=== PATIENT | female | born 1965 | race Caucasian/White ===

== ENCOUNTER 2018-09-27 09:38 | Outpatient (CLI) | payer MEDICAID | END 2018-09-27 09:39 | disposition critical access hospital (66) | LOC: EMS 09:38 | PROVIDERS: ATTEND Surgery | DX: R55 Syncope and collapse (principal) | CPT/HCPCS: A0425; A0427; A0999 ==

== ENCOUNTER 2018-09-27 09:58 | Emergency (ER) | payer MEDICAID ==
--- NOTE | 2018-09-27 12:01 | ED Physician Documentation ---
PD HPI NVD - Stated complaint Stated Complaint: DIZZY/SYNCOPAL - Chief complaint Chief Complaint: General - History obtained from History obtained from: Patient - History of Present Illness Timing - onset: Last night (She had an onset of diarrhea with 2 episodes of watery bowel movements during the night. She is feeling generally weak and lightheaded. Getting up from the toilet she did faint in the bathroom. She is feeling a bit better lying there and she is tried standing up again and shortly later almost fainted again. She has been having nausea with decreased intake over the last several days. She had received chemotherapy last Tuesday. She had been doing okay initially over the weekend and then develops more nausea less appetite and now the diarrhea. She did not notice any blood or melena in her stool.) Timing - duration: Hours Timing - details: Gradual onset, Still present Associated symptoms: Near syncope / syncope, Loss of appetite (for few days). No: Fever, Abdominal pain, Chest pain, Hematochezia Improved by: No: Eating Worsened by: Eating (the nauseea is worse) Recently seen: Clinic (had chemo recently.) Review of Systems Constitutional: denies: Fever, Chills Nose: denies: Rhinorrhea / runny nose, Congestion Throat: denies: Sore throat Respiratory: denies: Cough GI: reports: Nausea, Diarrhea. 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: Breast cancer - Present Medications Home Medications: Ambulatory Orders Medication Instructions Recorded Confirmed Diphenoxylate/Atropine [Lomotil] 1 each PO QID PRN #15 tablet 09/27/18 - Allergies Allergies/Adverse Reactions: Allergies Allergy/AdvReac Type Severity Reaction Status Date / Time latex Allergy Edema Verified 09/27/18 12:33 - Social History Does the pt smoke?: No Smoking Status: Former smoker Does the pt drink ETOH?: Yes ETOH Use: Wine Does the pt have substance abuse?: No - Immunizations Immunizations are current?: Yes - POLST Patient has POLST: No PD ED PE NORMAL - Vitals Vital signs reviewed: Yes - General General: Alert and oriented X 3, No acute distress, Well developed/nourished - HEENT HEENT: Atraumatic, Pharynx benign. No: Moist mucous membranes - Neck Neck: Supple, no meningeal sign, No adenopathy - Cardiac Cardiac: RRR, No murmur - Respiratory Respiratory: Clear bilaterally - Abdomen Abdomen: Normal bowel sounds, Soft, Non tender, Non distended - Derm Derm: Normal color, Warm and dry - Extremities Extremities: No deformity, No tenderness to palpate, Normal ROM s pain - Neuro Neuro: Alert and oriented X 3, No motor deficit, Normal speech Results - Vitals Vitals: Vital Signs - 24 hr 09/27/18 09/27/18 09/27/18 12:43 14:25 15:37 Heart Rate 65 70 69 Respiratory 16 14 18 Rate Blood Pressure 106/48 L 115/63 114/56 L O2 Saturation 96 96 97 Oxygen O2 Source Room air - Labs Labs: Laboratory Tests 09/27/18 09/27/18 09/27/18 12:39 12:39 14:10 WBC 6.1 RBC 3.19 L Hgb 11.0 L Hct 31.0 L MCV 97.0 MCH 34.5 H MCHC 35.5 RDW 12.7 Plt Count 202 MPV 8.1 Neut # (Auto) 5.8 Lymph # (Auto) 0.2 L [place] # (Auto) 0.0 Eos # (Auto) 0.0 Baso # (Auto) 0.0 Absolute Nucleated RBC 0.00 Nucleated RBC % 0.0 Manual Slide Review Indicated WBC Morphology 1+ DOHLE BODIES Platelet Estimate NORMAL (130-450,000) Platelet Morphology NORMAL APPEARANCE RBC Morph Micro Appear NORMAL APPEARANCE Sodium 133 L Potassium 4.1 Chloride 99 L Carbon Dioxide 25 Anion Gap 9.0 BUN 13 Creatinine 0.6 Estimated GFR (MDRD) 105 Glucose 106 H Calcium 7.7 L Magnesium 1.8 Total Bilirubin 0.8 AST 19 ALT 20 Alkaline Phosphatase 37 L Total Protein 5.8 L Albumin 3.2 Globulin 2.6 Albumin/Globulin Ratio 1.2 Lipase 20 L Urine Color YELLOW Urine Clarity CLEAR Urine pH 7.0 Ur Specific [place] 1.010 Urine Protein NEGATIVE Urine Glucose (UA) NEGATIVE Urine Ketones NEGATIVE Urine Occult Blood NEGATIVE Urine Nitrite NEGATIVE Urine Bilirubin NEGATIVE Urine Urobilinogen 0.2 (NORMAL) Ur Leukocyte Esterase NEGATIVE Ur Microscopic Review NOT INDICATED Urine Culture Comments NOT INDICATED PD MEDICAL DECISION MAKING - ED course Complexity details: reviewed results, re-evaluated patient (feeling better with fluids and meds) Departure - Departure Disposition: 01 Home, Self Care Clinical Impression: Postural syncope, Dehydration, Nausea vomiting and diarrhea, Hypocalcemia Condition: Stable Record reviewed to determine appropriate education?: Yes Instructions: ED Dehydration, ED Syncope Vasovagal Prescriptions: Diphenoxylate/Atropine [Lomotil] 1 each PO QID PRN #15 tablet PRN Reason: Diarrhea Comments: I think your fainting was from low blood pressure subsequent to dehydration and the diarrhea. No doubt there is the effect of the chemotherapy as well. The diarrhea may be an intestinal acute infection or could be irritation from the chemo. See if this improves in the next day or 2. Use Lomotil if needed for diarrhea. Use your nausea medicine at home as needed for nausea. Frequent fluids. Your calcium level was a little bit low here and so you are given a supplement IV. I do not think you necessarily need an ongoing supplement. F ollow-up with your primary care and oncology in the next couple of days. Discharge Date/Time: 09/27/18 16:05
[2018-09-27] MEDS ORDERED: ONDANSETRON 4 MG/2 ML VIAL IVP STA (12:25)
[2018-09-27] MEDS ORDERED: SODIUM CHLORIDE 0.9% 1,000 ML IV ONE ×3 (12:25→13:55)
[2018-09-27 12:57] LABS: ALBUMIN 3.2 g/dL (3.2-5.5); ALBUMIN/GLOBULIN RATIO 1.2 (1.0-2.2); BASOPHILS % (AUTO) 0.3 %; BILIRUBIN,TOTAL 0.8 mg/dL (0.2-1.0); CALCIUM 7.7 mg/dL (8.5-10.3); CREATININE 0.6 mg/dL (0.4-1.0); EOSINOPHILS % (AUTO) 0.1 %; LYMPHOCYTES # (AUTO) 0.2 10^3/uL (1.5-3.5); LYMPHOCYTES % (AUTO) 3.2 %; MAGNESIUM 1.8 mg/dL (1.7-2.8); MEAN CORPUSCULAR HEMOGLOBIN 34.5 pg (27.0-31.0); MEAN CORPUSCULAR HGB CONC 35.5 g/dL (32.0-36.0); MEAN PLATELET VOLUME 8.1 fL (7.9-10.8); MONOCYTES % (AUTO) 0.8 %; NEUTROPHILS # (AUTO) 5.8 10^3/uL (1.5-6.6); NEUTROPHILS % (AUTO) 95.6 %; PLT - PLATELET COUNT 202 10^3/uL (130-450); RED BLOOD COUNT 3.19 10^6/uL (4.20-5.40); RED CELL DISTRIBUTION WIDTH 12.7 % (12.0-15.0); TOTAL PROTEIN 5.8 g/dL (6.7-8.2); WHITE BLOOD COUNT 6.1 x10^3/uL (4.8-10.8)
[2018-09-27 13:23] LABS: PLATELET ESTIMATE, MANUAL NORMAL (130-450,000) (NORMAL); PLATELET MORPHOLOGY NORMAL APPEARANCE (NORMAL); RBC MORPHOLOGY (MULTIPLE) NORMAL APPEARANCE (NORMAL)
[2018-09-27] MEDS ORDERED: CALCIUM GLUCONATE 1,000 MG in SODIUM CHLORIDE 0.9% 50 ML IV STA (13:39)
[2018-09-27 15:02] LABS: BILIRUBIN,URINE NEGATIVE (NEGATIVE); GLUCOSE, URINE (UA) NEGATIVE (NEGATIVE); KETONES,URINE (UA) NEGATIVE (NEGATIVE); LEUKOCYTE ESTERASE, URINE NEGATIVE (NEGATIVE); NITRITE,URINE NEGATIVE (NEGATIVE); OCCULT BLOOD,URINE NEGATIVE (NEGATIVE); PROTEIN,URINE NEGATIVE (NEGATIVE); UROBILINOGEN,URINE 0.2 (NORMAL) E.U./dL (NORMAL)
[2018-09-27 15:03] LABS: CLARITY,URINE CLEAR (CLEAR)
[2018-09-27] MEDS ORDERED: ACETAMINOPHEN 325 MG TABLET PO STA (15:22)
[2018-09-27] MEDS ORDERED: DIPHENOX/ATROPINE 2.5/0.025 MG TABLET PO STA (15:23)
[2018-09-27 15:38] VITALS: BP 114/56
== END 2018-09-27 16:05 | disposition home or self-care (01) ==
LOC: ED 09:58
DX: R55 Syncope and collapse (principal); E86.0 Dehydration; R11.2 Nausea with vomiting, unspecified; R19.7 Diarrhea, unspecified; E83.51 Hypocalcemia; Z87.891 Personal history of nicotine dependence
CPT/HCPCS: 36415; 80053; 81003; 83690; 83735; 85025; 96361; 96365; 96375; 99284; A9270; J7040; 81001; 87086

== ENCOUNTER 2018-12-21 12:06 | Outpatient (CLI) | payer MEDICAID ==
[2018-12-21 12:35] LABS: BASOPHILS % (AUTO) 0.5 %; EOSINOPHILS # (AUTO) 0.1 10^3/uL (0.0-0.7); EOSINOPHILS % (AUTO) 1.2 %; HGB - HEMOGLOBIN 10.5 g/dL (12.0-16.0); LYMPHOCYTES # (AUTO) 0.9 10^3/uL (1.5-3.5); LYMPHOCYTES % (AUTO) 15.9 %; MEAN CORPUSCULAR HEMOGLOBIN 35.3 pg (27.0-31.0); MEAN CORPUSCULAR HGB CONC 35.5 g/dL (32.0-36.0); MEAN CORPUSCULAR VOLUME 99.3 fL (81.0-99.0); MEAN PLATELET VOLUME 8.1 fL (7.9-10.8); MONOCYTES # (AUTO) 0.8 10^3/uL (0.0-1.0); MONOCYTES % (AUTO) 15.3 %; NEUTROPHILS # (AUTO) 3.6 10^3/uL (1.5-6.6); NEUTROPHILS % (AUTO) 67.1 %; PLT - PLATELET COUNT 392 10^3/uL (130-450); RED BLOOD COUNT 2.97 10^6/uL (4.20-5.40); RED CELL DISTRIBUTION WIDTH 21.2 % (12.0-15.0); WHITE BLOOD COUNT 5.4 x10^3/uL (4.8-10.8)
[2018-12-21 14:27] LABS: ALBUMIN/GLOBULIN RATIO 1.5 (1.0-2.2); BILIRUBIN,TOTAL 0.3 mg/dL (0.2-1.0); CALCIUM 9.1 mg/dL (8.5-10.3); CREATININE 0.7 mg/dL (0.4-1.0); TOTAL PROTEIN 6.7 g/dL (6.7-8.2)
== END 2018-12-21 12:07 | disposition home or self-care (01) ==
LOC: LAB 12:06
PROVIDERS: ATTEND Internal Medicine Hematology & Oncology
DX: C50.411 Malignant neoplasm of upper-outer quadrant of right female breast (principal)
CPT/HCPCS: 36415; 80053; 85025

== ENCOUNTER 2019-04-19 10:16 | Emergency (ER) | payer MEDICAID ==
[2019-04-19 12:24] LABS: BASOPHILS % (AUTO) 1.1 %; EOSINOPHILS % (AUTO) 0.9 %; HGB - HEMOGLOBIN 13.6 g/dL (12.0-16.0); LYMPHOCYTES # (AUTO) 0.8 10^3/uL (1.5-3.5); LYMPHOCYTES % (AUTO) 24.4 %; MEAN CORPUSCULAR HEMOGLOBIN 34.4 pg (27.0-31.0); MEAN CORPUSCULAR HGB CONC 35.2 g/dL (32.0-36.0); MEAN CORPUSCULAR VOLUME 97.8 fL (81.0-99.0); MEAN PLATELET VOLUME 7.9 fL (7.9-10.8); MONOCYTES # (AUTO) 0.3 10^3/uL (0.0-1.0); MONOCYTES % (AUTO) 9.3 %; NEUTROPHILS # (AUTO) 2.2 10^3/uL (1.5-6.6); NEUTROPHILS % (AUTO) 64.3 %; PLT - PLATELET COUNT 217 10^3/uL (130-450); RED BLOOD COUNT 3.94 10^6/uL (4.20-5.40); RED CELL DISTRIBUTION WIDTH 11.9 % (12.0-15.0); WHITE BLOOD COUNT 3.4 x10^3/uL (4.8-10.8)
[2019-04-19] MEDS ORDERED: oxyCODONE 5 MG TABLET PO STA (14:07)
--- NOTE | 2019-04-19 15:57 | ED Physician Documentation ---
History of Present Illness - Stated complaint Stated Complaint: SWOLLEN BREAST - Chief complaint Chief Complaint: General - History obtained from History obtained from: Patient - Additonal information Additional information: The patient is a 54-year-old female with history of breast cancer, who underwent lumpectomy 6 weeks ago and removal of the surgical drain 8 days ago. She presents with right breast pain and swelling, as well as redness. She is not currently on chemotherapy or radiation. She finished chemotherapy 2 1/2 months ago. She denies fever. She denies drainage from her nipple or from the surgical drain site. Review of Systems Constitutional: reports: Fatigue. 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 - Past Surgical History /CORPORATE TRAVEL COUNSELOR: Other (Lumpectomy right breast.) - Present Medications Home Medications: Ambulatory Orders Medication Instructions Recorded Confirmed Diphenoxylate/Atropine [Lomotil] 1 each PO QID PRN #15 tablet 09/27/18 Methylprednisolone [Medrol Dose 1 each PO .PACKAGEINSTRUCTIONS 6 04/19/19 Pack] Days #1 each Oxycodone HCl/Acetaminophen 1 - 2 each PO Q6H PRN #14 tablet 04/19/19 [Percocet 5-325 mg Tablet] - Allergies Allergies/Adverse Reactions: Allergies Allergy/AdvReac Type Severity Reaction Status Date / Time latex Allergy Edema Verified 04/19/19 10:30 - Social History Does the pt smoke?: No Smoking Status: Former smoker Does the pt drink ETOH?: Yes Does the pt have substance abuse?: No - Immunizations Immunizations are current?: Yes - POLST Patient has POLST: No PD ED PE NORMAL - Vitals Vital signs reviewed: Yes (Borderline hypertension initially.) - General General: Alert and oriented X 3, Well developed/nourished - HEENT HEENT: Atraumatic, Moist mucous membranes - Neck Neck: Supple, no meningeal sign, No adenopathy - Cardiac Cardiac: RRR - Respiratory Respiratory: No respiratory distress, Clear bilaterally - Abdomen Abdomen: Soft, Non tender - Back Back: No CVA TTP - Extremities Extremities: No edema, No calf tenderness / cord - Neuro Neuro: Alert and oriented X 3, No motor deficit, Normal speech - Free text exam Free text exam: The right breast is erythematous and enlarged compared to the left. There is generalized tenderness to palpation. No significant warmth. The surgical drain site appears to be healing, and there is no drainage from the site. There is no axillary adenopathy. Results - Vitals Vitals: Oxygen O2 Source Room air - Labs Labs: Laboratory Tests 04/19/19 12:18 WBC 3.4 L RBC 3.94 L Hgb 13.6 Hct 38.6 MCV 97.8 MCH 34.4 H MCHC 35.2 RDW 11.9 L Plt Count 217 MPV 7.9 Neut # (Auto) 2.2 Lymph # (Auto) 0.8 L [place] # (Auto) 0.3 Eos # (Auto) 0.0 Baso # (Auto) 0.0 Absolute Nucleated RBC 0.00 Nucleated RBC % 0.0 PD MEDICAL DECISION MAKING - ED course Complexity details: reviewed results, re-evaluated patient, considered differential, d/w patient, d/w merchandising consultant ED course: The patient's presentation is significant for pain in her right breast, 8 days status post removal of surgical drain following lumpectomy. There is likely a recurrent fluid collection causing the pain. Clinically, the breast does not appear infected. The erythema is likely vascular, had it blanches. There is no significant warmth to palpation. Her white blood cell count is not elevated, at 3.4. Treatment in the emergency department included administration of oxycodone 5 mg orally. I discussed her presentation with Dr. Red, her surgeon, who recommends treatment with steroid therapy and pain medication. The patient is scheduled to see him in follow-up tomorrow. She is being discharged with prescriptions for Medrol Dosepak and for Percocet, 14 tablets. I discussed with her the importance of follow-up with her surgeon, as well as potentially worrisome signs or symptoms that should prompt reevaluation in the emergency department. Departure - Departure Disposition: 01 Home, Self Care Clinical Impression: Pain of right breast, S/P lumpectomy, right breast Condition: Stable Instructions: ED Wound Check Post Op No Infec, ED Post Op Pain Prescriptions: Methylprednisolone [Medrol Dose Pack] 1 each PO .PACKAGEINSTRUCTIONS 6 Days #1 each Oxycodone HCl/Acetaminophen [Percocet 5-325 mg Tablet] 1 - 2 each PO Q6H PRN #14 tablet PRN Reason: pain Comments: You can use Percocet as prescribed if needed for pain. Take the steroid medication once daily as prescribed. Follow-up with Dr. Red tomorrow as scheduled. Return to the emergency department if increasing redness, swelling, pain, or otherwise worsening symptoms. Discharge Date/Time: 04/19/19 16:15
[2019-04-19 16:13] VITALS: BP 152/61
== END 2019-04-19 16:15 | disposition home or self-care (01) ==
LOC: ED 10:16
DX: N64.4 Mastodynia (principal); Z08 Encounter for follow-up examination after completed treatment for malignant neoplasm; Z85.3 Personal history of malignant neoplasm of breast; Z87.891 Personal history of nicotine dependence
CPT/HCPCS: 36415; 85025; 99283; A9270

== ENCOUNTER 2019-10-08 09:09 | Emergency (ER) | payer MEDICAID ==
--- NOTE | 2019-10-08 09:24 | ED Physician Documentation ---
History of Present Illness - Stated complaint Stated Complaint: DIZZINESS - History obtained from History obtained from: Patient - Additonal information Additional information: This is a 54-year-old woman with inflammatory breast cancer who presents with complaints that she is been feeling dizzy for the past 2 days vomiting and unable to keep anything down. She had been prescribed some antinausea medication by her cancer doctor but it does not seem to be working. She is also not had a bowel movement in a week and was started on a bowel regimen with Colace escalating to Senokot and then suppository today. She said she might of had a very small bowel movement today. She is hurting through her back her neck has a headache but she thinks is from laying in bed for the past 2 days. She has not passed out. She denies any history of anemia and had a blood count 2 weeks ago following her last chemo. She denies abdominal pain. She is had no fever. No cardiac palpitations or shortness of breath. No dysuria. No history of DVT. Patient does have a history of inflammatory breast cancer that was diagnosed in February 2019 she developed lymphedema of the right arm and has undergone lumpectomy and lymph node dissection. She is currently receiving chemotherapy through the [facility] with the [facility] in [place]. She had a surveillance CT MRI of her abdomen and hit head just this past Tuesday and it was negative for any metastasis. Patient takes gabapentin and oxycodone 10 mg every 3 hours for her chronic pain. Review of Systems Constitutional: denies: Fever Eyes: denies: Loss of vision Nose: denies: Congestion Throat: denies: Sore throat Cardiac: denies: Palpitations Respiratory: denies: Dyspnea GI: reports: Nausea, Vomiting, Constipation. 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 - Past Surgical History /ACCOUNTING RECRUITER: Other (Lumpectomy right breast.) - Present Medications Home Medications: Ambulatory Orders Medication Instructions Recorded Confirmed Diphenoxylate/Atropine [Lomotil] 1 each PO QID PRN #15 tablet 09/27/18 Methylprednisolone [Medrol Dose 1 each PO .PACKAGEINSTRUCTIONS 6 04/19/19 Pack] Days #1 each Oxycodone HCl/Acetaminophen 1 - 2 each PO Q6H PRN #14 tablet 04/19/19 [Percocet 5-325 mg Tablet] - Allergies Allergies/Adverse Reactions: Allergies Allergy/AdvReac Type Severity Reaction Status Date / Time latex Allergy Edema Verified 10/08/19 09:22 - Social History Does the pt smoke?: No Smoking Status: Former smoker Does the pt drink ETOH?: Yes Does the pt have substance abuse?: No - Immunizations Immunizations are current?: Yes - POLST Patient has POLST: No PD ED PE NORMAL - Vitals Vital signs reviewed: Yes - General General: Alert and oriented X 3, No acute distress, Well developed/nourished - HEENT HEENT: Atraumatic, PERRL, Pharynx benign, Other (Dry mucous membranes) - Neck Neck: Supple, no meningeal sign, No adenopathy, Thyroid normal - Cardiac Cardiac: RRR, No murmur, Strong equal pulses - Respiratory Respiratory: No respiratory distress, Clear bilaterally - Abdomen Abdomen: Normal bowel sounds, Soft, Non tender, No organomegaly - Derm Derm: Other (There is a erythematous patchy macular rash on her right upper chest and her upper back. The skin on the surface of this is scaly.) - Extremities Extremities: Other (The right arm is diffusely swollen into the hand from the lymphedema. Legs have no edema.) - Neuro Neuro: Alert and oriented X 3, barrel cutter 2-12 intact, No motor deficit, No sensory deficit, Normal speech - Psych Psych: Normal mood, Normal affect Results - Vitals Vitals: Vital Signs - 24 hr 10/08/19 10/08/19 10/08/19 09:22 10:08 10:48 Temperature 36.5 C Heart Rate 76 57 L 63 Respiratory 18 18 18 Rate Blood Pressure 146/91 H 129/61 140/65 H O2 Saturation 99 99 100 10/08/19 11:15 Temperature Heart Rate 75 Respiratory 18 Rate Blood Pressure 126/61 O2 Saturation 100 Oxygen O2 Source Room air - Labs Labs: Laboratory Tests 10/08/19 10/08/19 10:01 10:01 WBC 3.2 L RBC 3.58 L Hgb 12.0 Hct 35.1 L MCV 98.0 MCH 33.5 H MCHC 34.2 RDW 12.4 Plt Count 349 MPV 9.3 Neut # (Auto) 1.8 Lymph # (Auto) 0.9 L [place] # (Auto) 0.5 Eos # (Auto) 0.0 Baso # (Auto) 0.1 Absolute Nucleated RBC 0.00 Nucleated RBC % 0.0 Sodium 136 Potassium 3.3 L Chloride 97 L Carbon Dioxide 30 Anion Gap 9.0 BUN 8 Creatinine 0.6 Estimated GFR (MDRD) 105 Glucose 112 H Calcium 9.0 Total Bilirubin 1.0 AST 21 ALT 29 Alkaline Phosphatase 38 L Total Protein 6.8 Albumin 3.7 Globulin 3.1 Albumin/Globulin Ratio 1.2 Lipase 18 L PD MEDICAL DECISION MAKING - ED course Complexity details: reviewed results, d/w patient, d/w family ED course: Labs normal. Xray with moderate stool loading. Toradol for muscle aches and a liter of fluids given. Recommended Miralax daily, movement and increasing fiber. Departure - Departure Disposition: Home, Self Care Clinical Impression: Constipation Qualifiers: Constipation type: unspecified constipation type Qualified Code(s): K59.00 - Constipation, unspecified Condition: Good Instructions: ED Constipation Follow-Up: NARESH LOPES MD [Primary Care Provider] - Comments: Take the Miralax at home 17g daily until bowel movement. Increase fiber and try to get up and move around to stimulate gut motility. Follow-up with your doctor for re-evaluation if you remain constipated.
[2019-10-08] MEDS ORDERED: SODIUM CHLORIDE 0.9% 1,000 ML IV ONE (09:45)
[2019-10-08] MEDS ORDERED: ONDANSETRON 4 MG/2 ML VIAL IVP STA (09:45)
[2019-10-08 10:10] LABS: BASOPHILS # (AUTO) 0.1 10^3/uL (0.0-0.1); BASOPHILS % (AUTO) 1.6 %; LYMPHOCYTES # (AUTO) 0.9 10^3/uL (1.5-3.5); LYMPHOCYTES % (AUTO) 28.3 %; MEAN CORPUSCULAR HEMOGLOBIN 33.5 pg (27.0-31.0); MEAN CORPUSCULAR HGB CONC 34.2 g/dL (32.0-36.0); MEAN PLATELET VOLUME 9.3 fL (7.9-10.8); MONOCYTES # (AUTO) 0.5 10^3/uL (0.0-1.0); MONOCYTES % (AUTO) 14.6 %; NEUTROPHILS # (AUTO) 1.8 10^3/uL (1.5-6.6); NEUTROPHILS % (AUTO) 54.9 %; PLT - PLATELET COUNT 349 10^3/uL (130-450); RED BLOOD COUNT 3.58 10^6/uL (4.20-5.40); RED CELL DISTRIBUTION WIDTH 12.4 % (12.0-15.0); WHITE BLOOD COUNT 3.2 x10^3/uL (4.8-10.8)
[2019-10-08 10:26] LABS: ALBUMIN 3.7 g/dL (3.2-5.5); ALBUMIN/GLOBULIN RATIO 1.2 (1.0-2.2); CREATININE 0.6 mg/dL (0.4-1.0); TOTAL PROTEIN 6.8 g/dL (6.7-8.2)
--- NOTE | 2019-10-08 11:04 | XRAY Report ---
Reason: constipation abdominal pain Procedure Date: 10/08/2019 Accession Number: [id number] / [id number] Procedure: XR - Abdomen 1 View X-Ray CPT Code: 91403 Final Report FULL RESULT: EXAM: ABDOMEN RADIOGRAPHY EXAM DATE: 10/08/2019 10:30 AM. CLINICAL HISTORY: Constipation abdominal pain. History of breast cancer. COMPARISON: CT CHEST, ABDOMEN, PEL 10/02/2019 12:57 PM. TECHNIQUE: 1 view. FINDINGS: Bowel Gas Pattern: Nonobstructive bowel gas pattern. Moderate formed colonic stool, greatest in the right and transverse colon. Other: None. IMPRESSION: 1. No obstruction. 2. Moderate colonic stool, greatest in the right colon. RADIA
[2019-10-08] MEDS ORDERED: KETOROLAC 30 MG/ML VIAL IVP STA (11:19)
[2019-10-08 11:43] VITALS: BP 132/85
[2019-10-08 12:17] LABS: BILIRUBIN,URINE NEGATIVE (NEGATIVE); GLUCOSE, URINE (UA) NEGATIVE (NEGATIVE); KETONES,URINE (UA) TRACE mg/dL (NEGATIVE); LEUKOCYTE ESTERASE, URINE NEGATIVE (NEGATIVE); NITRITE,URINE NEGATIVE (NEGATIVE); OCCULT BLOOD,URINE NEGATIVE (NEGATIVE); PROTEIN,URINE NEGATIVE (NEGATIVE); UROBILINOGEN,URINE 0.2 (NORMAL) E.U./dL (NORMAL)
[2019-10-08 12:19] LABS: CLARITY,URINE CLEAR (CLEAR)
== END 2019-10-08 12:04 | disposition home or self-care (01) ==
LOC: ED 09:09
DX: K59.00 Constipation, unspecified (principal); R11.2 Nausea with vomiting, unspecified; C50.911 Malignant neoplasm of unspecified site of right female breast; Z79.899 Other long term (current) drug therapy; I89.0 Lymphedema, not elsewhere classified; R21 Rash and other nonspecific skin eruption; Z87.891 Personal history of nicotine dependence
CPT/HCPCS: 36415; 74018; 80053; 81001; 81003; 83690; 85025; 87086; 96361; 96374; 96375; 99282